=== PATIENT | male | born 1995 | race Two or more races ===

== ENCOUNTER 2024-03-20 07:43 | Outpatient (AMB) | payer OTHER, SELFPAY ==
--- NOTE | 2024-03-20 07:47 | A.OFFPC_ITS ---
Vital Signs 03/20/24 07:49 Height 5 ft 9 in Weight 163 lb BMI 24.1 BP 108/68 Blood Pressure Location Lt brachial Position Sitting Pulse 85 Pulse Source Pulse Oximeter Pulse Oximetry (%) 98 Oxygen Delivery Method Room Air Intake Visit Reasons: Est Care/Requesting PE Intake Note: Pt is here today as a New Patient to est care/ PE Medication List - Last Reconciled 03/20/24 by Natacha Bullock MD omeprazole 40 mg PO DAILY Tobacco use date assessed: 03/20/24 Dental Screening Dental Screen Date: 03/20/24 Did you have a dental visit in the last 12 months?: Yes Did you have a dental problem in the last 6 months where you did not have access to dental care?: No Was dental information given to patient?: Patient has dentist HPI Est Care/Requesting PE HPI Details Pt presents for UTILIZATION MANAGEMENT MANAGER PE. Pt came from [facility] 2 months ago. Pt c/o epigastric discomfort for 6 months worse after eating, no nausea, vomiting change in BMs, melena. PFSH Social History Housing: Apartment Patient Tobacco Use Status: Current everyday Tobacco user Tobacco use type: Cigarette e-Cigarette/Vaping Use: Never Used service: No Current occupational status: unemployed Cognitive needs: No Hearing needs: No Vision needs: Yes Questionnaire Thrive Questionnaire Date Thrive assessed: 03/16/24 I am a: Patient What is your living situation today?: I have a steady place to live Within the past 12 months, did the food you bought not last and you didn't have the money to get more?: Never true Within the past 12 months, did you worry whether your food would run out before you got money to buy more?: Never true Do you have trouble paying for medicines?: No Do you have trouble getting transportation to medical appointments?: No Do you have trouble paying your heating and electricity bill?: No Do you have trouble taking care of your child, family member or friend?: No Do you have trouble with day-to-day activities such as bathing, preparing meals, shopping, managing finances, etc.?: No Are you currently unemployed and looking for a job?: No Are you interested in more education?: No Please select the resources that you would like help with: None Currently or been in a relationship where the following occur: No concerns reported THRIVE Score: 0 AUDIT C Alcohol Use Questionnaire (AUDIT-C) 1. How often do you have a drink containing alcohol?: Monthly or less 2. How many drinks containing alcohol do you have on a typical day when you are drinking?: 1 or 2 3. How often do you have six or more drinks on one occasion?: Never Total Score: 1 CARLY-7 AMB Questionnaire CARLY-7 Feeling nervous, anxious, or on edge: 0 = Not at all Not being able to stop or control worryin = Not at all Worrying too much about different things: 0 = Not at all Trouble relaxin = Not at all Being so restless that it is hard to sit still: 0 = Not at all Becoming easily annoyed or irritable: 0 = Not at all Feeling afraid as if something awful might happen: 0 = Not at all Total CARLY-7 score (0-4 normal; 5-9 mild; 10-14 moderate; 15-21 severe): 0 Source: Developed by Drs. Abel Brumfield, Jazmin Araujo, Kev Munson and colleagues, with an educational josafat from Personal. Review of Systems Const All systems reviewed & are unremarkable except as noted in HPI and below Reports no additional complaints Eyes Reports no additional complaints ENT Reports no additional complaints Card Reports no additional complaints Resp Reports no additional complaints GI Reports no additional complaints Physical exam (Primary Care) Vital Signs: Last Vital Signs Pulse 85 03/20/24 07:49 BP 108/68 03/20/24 07:49 Pulse Ox 98 03/20/24 07:49 Oxygen Delivery Method Room Air 03/20/24 07:49 BMI result Body Mass Index 24.1 Tobacco/Smoking Status: Tobacco use Status Tobacco use date assessed 03/20/24 03/20/24 07:53 Patient Tobacco Use Status Current everyday Tobacco 03/20/24 07:53 Tobacco use type Cigarette 03/20/24 07:53 e-Cigarette/Vaping Use Never Used 03/20/24 07:53 Thrive Assessment: Date of Thrive Assessment Date Thrive assessed 03/16/24 03/20/24 07:53 Currently or been in a relationship where the following occur: No concerns reported Const General: no acute distress HENMT Head: Yes normal to inspection Ears: hearing grossly normal bilaterally General nose exam: Normal external nose present Face and sinus: Yes normal facial exam Mouth: Normal oral and palatal mucosa present Throat: Yes posterior oropharynx normal Neck Neck: Yes no lymphadenopathy and Yes supple Resp Effort & Inspection: normal respiratory effort Auscultation: clear to auscultation bilaterally Cardio Rhythm: regular rhythm Heart sounds: S1 normal heart sound present and S2 normal heart sound present GI Inspection: Yes normal to inspection Palpation (GI): Soft to palpation Percussion: Yes normal to percussion Auscultation: normal bowel sounds Coding Level of Care Code Est Pt Prev Care 18-39y(55112) Diagnoses Annual physical exam Z00.00 Gastritis K29.70 Assessment & Plan Assessment & Plan (1) Annual physical exam: Code(s): Z00.00 - Encounter for general adult medical examination without abnormal findings Category: Medical Plan: well balanced diet, regular exercise, check labs (2) Gastritis: Code(s): K29.70 - Gastritis, unspecified, without bleeding Category: Medical Plan: check labs, stool H pylori, trial of Omeprazole 40 mg for 2 months. If symptoms reoccur refer to GI Orders: Orders Comprehensive Ewing. Panel Fast Today K29.70 - Gastritis, unspecified, without bleeding, Z00.00 - Encounter for general adult medical examination without abnormal findings Complete Blood Count Auto Diff Today K29.70 - Gastritis, unspecified, without bleeding, Z00.00 - Encounter for general adult medical examination without abnormal findings Lipid Panel Today K29.70 - Gastritis, unspecified, without bleeding, Z00.00 - Encounter for general adult medical examination without abnormal findings UA w Microscopic Today K29.70 - Gastritis, unspecified, without bleeding, Z00.00 - Encounter for general adult medical examination without abnormal findings H pylori Ag Stool Today K29.70 - Gastritis, unspecified, without bleeding, Z00.00 - Encounter for general adult medical examination without abnormal findings Medications: New omeprazole 40 mg PO DAILY 60 caps 0RF omeprazole 40 mg PO DAILY 60 caps 0RF
[2024-03-20 07:49] VITALS: BP 108/68; PULSE 85; O2SAT 98; BMI 24.1
== END 2024-03-20 08:22 | disposition home or self-care (01) ==
PROVIDERS: Visit Provider Internal Medicine
DX: Z00.00 Encounter for general adult medical examination without abnormal findings (principal); K29.70 Gastritis, unspecified, without bleeding

== ENCOUNTER → 2024-03-20 07:43 | Outpatient (BNVA) | payer OTHER, SELFPAY | PROVIDERS: Visit Provider Internal Medicine | DX: Z00.00 Encounter for general adult medical examination without abnormal findings (principal); K29.70 Gastritis, unspecified, without bleeding | CPT/HCPCS: 99395 ==

== ENCOUNTER 2024-03-21 08:47 | Outpatient (REF) | payer OTHER, SELFPAY ==
[2024-03-21 10:04] LABS: MANUAL DIFF FLAG NO
[2024-03-21 10:13] LABS: Basophils Absolute Auto 0.1 X10*3/uL (0.0-0.2); Eosinophils Absolute Auto 0.2 X10*3/uL (0.0-0.4); Eosinophils Percent Auto 3.6 % (0-4); Hematocrit 45.2 % (42.0-52.0); Hemoglobin 14.7 g/dl (14.0-18.0); Imm Gran Abs Auto 0.02 X10*3/uL (0.00-0.03); Imm Gran Pct Auto 0.3 % (0.0-0.4); Lymphocytes Absolute Auto 1.8 X10*3/uL (1.2-4.9); Lymphocytes Percent Auto 31.6 % (20-40); Mean Corpuscular HGB Conc 32.5 g/dl (31.0-36.0); Mean Corpuscular Hemoglobin 28.1 pg (27.0-33.0); Mean Corpuscular Volume 86.4 fL (80.0-98.0); Monocytes Absolute Auto 0.6 X10*3/uL (0.1-1.2); Monocytes Percent Auto 10.5 % (2-11); Neutrophils Absolute Auto 3.1 x10*3/uL (2.0-8.3); Platelet Count 197 X10*3/uL (160-400); Red Blood Count 5.23 X10*6/uL (4.60-5.80); Red Cell Distribution Width 13.3 % (11.0-16.0); White Blood Count 5.8 X10*3/uL (4.8-10.8)
[2024-03-21 10:15] LABS: Appearance Urine Clear; Color Urine Yellow; Glucose Urine UA Negative (Negative); Leukocyte Esterase Urine Negative (Negative); Nitrite Urine Negative (Negative); Specific Gravity - Urine 1.025 (1.005-1.025); Urine Blood Negative (Negative); Urine Ketones Negative (Negative); Urine Protein Negative (Neg-Trace)
[2024-03-21 10:23] LABS: Bacteria Urine None Seen (None Seen); Hyaline Casts Urine 0-2 /LPF (0-2); RBC Urine 0-2 /HPF (0-2); Squamous Epithelial Cell Urine 0-2 /HPF (0-2); WBC Urine 0-5 /HPF (0-5)
[2024-03-21 10:43] LABS: Alanine Aminotransferase 30 U/L (0-40); Albumin Level 4.5 g/dL (3.5-5.0); Alkaline Phosphatase 59 U/L (39-117); Anion Gap 7 (12-20); Aspartate Amino Transferase 22 U/L (5-37); Bilirubin Total 0.5 mg/dL (0.0-1.0); Blood Urea Nitrogen 15 mg/dL (9-16); Calcium 8.9 mg/dL (8.4-10.2); Carbon Dioxide 29 mmol/L (22-29); Chloride 105 mmol/L (96-108); Cholesterol 168 mg/dL (<200); Estimated Glomerular Filt Rate > 60; Glucose Fasting 104 mg/dL (60-99); HDL Cholesterol 51 mg/dL (>40); LDL Cholesterol Calculated 98 mg/dL (<100); Potassium 4.1 mmol/L (3.3-5.1); Sodium 137 mmol/L (135-145); Total Protein 6.9 g/dL (6.5-8.0); Triglycerides 99 mg/dL (<150)
== END 2024-03-21 08:48 | disposition home or self-care (01) ==
LOC: HO.HMGCLDS 08:47
PROVIDERS: PCP Internal Medicine; Visit Provider Internal Medicine
DX: Z00.00 Encounter for general adult medical examination without abnormal findings (principal); K29.70 Gastritis, unspecified, without bleeding
CPT/HCPCS: 36415; 80053; 80061; 81001; 85025

== ENCOUNTER 2024-03-22 08:30 | Outpatient (REF) | payer OTHER, SELFPAY | END 2024-03-22 08:31 | disposition home or self-care (01) | LOC: HO.HMGCLNP 08:30 | PROVIDERS: PCP Internal Medicine; Visit Provider Internal Medicine | DX: Z00.00 Encounter for general adult medical examination without abnormal findings (principal); K29.70 Gastritis, unspecified, without bleeding | CPT/HCPCS: 87338 ==

== ENCOUNTER 2024-11-28 13:13 | Outpatient (REF) | payer OTHER, SELFPAY ==
--- NOTE | ~2024-11-28 | XR_ITS ---
EXAMINATION: XR ABDOMEN KUB CLINICAL INDICATION: R10.9 - Unspecified abdominal pain COMPARISON: None available. TECHNIQUE: AP view of the abdomen. FINDINGS: There is a normal bowel gas pattern. No abnormal calcifications are evident. No bony abnormalities are evident. XR/XR abdomen 1V IMPRESSION: Unremarkable examination. Electronically signed by: Leonid Romero MD 11/28/2024 02:24 PM EDT RP
[2024-11-28 16:04] LABS: Hematocrit 40.6 % (42.0-52.0); Hemoglobin 13.7 g/dl (14.0-18.0); Mean Corpuscular HGB Conc 33.7 g/dl (31.0-36.0); Mean Corpuscular Hemoglobin 28.1 pg (27.0-33.0); Mean Corpuscular Volume 83.2 fL (80.0-98.0); NRBC Abs Auto 0.000 X10*3/uL (0.0-0.012); NRBC Pct Auto 0.0 /100WBC (0.0-0.2); Platelet Count 169 X10*3/uL (160-400); Red Blood Count 4.88 X10*6/uL (4.60-5.80); White Blood Count 6.0 X10*3/uL (4.8-10.8)
[2024-11-28 16:14] LABS: Alanine Aminotransferase 19 U/L (0-40); Albumin Level 4.4 g/dL (3.5-5.0); Alkaline Phosphatase 62 U/L (39-117); Anion Gap 11 (12-20); Aspartate Amino Transferase 23 U/L (5-37); Blood Urea Nitrogen 13 mg/dL (9-16); Calcium 8.7 mg/dL (8.4-10.2); Carbon Dioxide 27 mmol/L (22-29); Chloride 106 mmol/L (96-108); Estimated Glomerular Filt Rate > 60; Potassium 3.8 mmol/L (3.3-5.1); Sodium 140 mmol/L (135-145); Total Protein 6.5 g/dL (6.5-8.0)
[2024-11-28 16:34] LABS: Band Neutrophils Percent 14 % (3-5); Eosinophils Absolute Manual 0.1 X10*3/uL (0.0-0.4); Eosinophils Percent Manual 1 % (0-4); Lymphocytes Absolute Manual 1.9 X10*3/uL (1.2-4.9); Lymphocytes Percent Manual 32 % (20-40); Monocytes Absolute Manual 1.1 X10*3/uL (0.1-1.2); Monocytes Percent Manual 19 % (2-11); Neutrophils Absolute Manual 2.9 X10*3/uL (2.0-8.3); Neutrophils Percent Manual 34 % (45-73)
[2024-11-28 16:37] LABS: RBC Morphology NORMAL
== END 2024-11-28 13:14 | disposition home or self-care (01) ==
LOC: HO.HMGCX 13:13
PROVIDERS: PCP Internal Medicine; Visit Provider Internal Medicine
DX: K29.70 Gastritis, unspecified, without bleeding (principal)
CPT/HCPCS: 36415; 74018; 80053; 85007; 85025; 85027; 99212

== ENCOUNTER 2024-11-28 13:13 | Outpatient (AMB) | payer OTHER, SELFPAY ==
--- OUTSIDE RECORDS SUMMARY | 2024-11-28 13:15 | XMS_ITS | Clinical Summary ---
Author Organization [facility] Address [address] [place] [address] Care Team Providers Care Marine Steward Name Role Phone Unavailable Primary Care Provider Unavailabl e Source Comments PLEASE NOTE, if this patient is a minor, it may be UNLAWFUL to discuss sensitive information that is contained in these records (such as FAMILY PLANNING, MENTAL HEALTH or SUBSTANCE ABUSE) with the minor patient's parent or other person without the patient's specific authorization.[facility] Social History Tobacco Use Types Packs/Day Years Used Date Smoking Tobacco: Never Assessed Social Connections Answer Date Recorded Connectedness 0 02/21/2024 Financial Resource Strain Answer Date R ecorded Financial Resource Strain 0 2023 Stress Answer Date Recorded Stress 0 02/21/2024 Physical Activity Answer Date Recorded Physical Activity 0 02/21/2024 Food Insecurity Answer Date Recorded Food 0 02/21/2024 Transportation Needs Answer Date Record ed Transportation 0 02/21/2024 Housing Stability Answer Date Recorded Housing 0 02/21/2024 Safety and Environment Answer Date Conrado rded Safety 0 02/21/2024 Utilities Answer Date Recorded Utilities 0 02/21/2024 Employment Answer Date Recorded Stress 0 02/21/2024 Sex and Gender Information Value Date Recorded Sex Assigned at Not on file Legal Sex Male 8:39 AM PDT Gender Identity Not on file Sexual Orientation Not on file Plan of Treatment Health Maintenance Due Date Last Done Comments Anxiety Screening 1994 Hepatitis C Screening 1994 Tobacco Screening 1994 HIV Screening 2009 Hypertension Screening (#1) 2012 Imm-DTaP/Tdap/Td (1 - Tdap) 2013 Imm-Hepatitis B (1 of 3 - 19+ 3-dose series) 3 [id number] ( season) 2024 Alcohol and Drug Screen 05/07/2024 Depression Annual Screen 05/07/2024 Imm-Influenza (#1) 2025
--- NOTE | 2024-11-28 13:19 | A.OFFPC_ITS ---
Vital Signs 11/28/24 13:20 Height 5 ft 9 in Weight 159 lb BMI 23.5 BP 102/78 Blood Pressure Location Lt brachial Position Sitting Respiration 16 Pulse 78 Pulse Source Pulse Oximeter Temp 98.1 F Temp Source Oral Pulse Oximetry (%) 96 Oxygen Delivery Method Room Air Intake Visit Reasons: Stomach pain Manager Logistic Required: No Accompanied by: Friend Medication List - Last Reconciled 11/28/24 by Natacha Bullock MD famotidine (Pepcid) 40 mg PO DAILY Tobacco use date assessed: 03/20/24 Dental Screening Dental Screen Date: 03/20/24 HPI Stomach pain HPI Details Patient presents complaining of 4 days of epigastric abdominal pain nausea watery diarrhea worse after eating. He denies fever chills hematochezia melena eating undercooked meat or fish recent travel. Patient has been able to keep fluids and rice down. He reports of chronic persistent epigastric abdominal pain since March. Patient completed course of antibiotics for H pylori and his symptoms improved for a few weeks. Patient has been taking omeprazole without relief. [facility] Medical History (Updated 11/28/24 @ 15:02 by Natacha Bullock MD) Gastritis Abdominal pain H. pylori infection Family History Father No problems noted. Mother No problems noted. Social History Housing: Apartment Patient Tobacco Use Status: Current everyday Tobacco user Tobacco use type: Cigarette e-Cigarette/Vaping Use: Never Used service: No Current occupational status: unemployed Cognitive needs: No Hearing needs: No Vision needs: Yes Questionnaire Thrive Questionnaire Date Thrive assessed: 03/16/24 Review of Systems Const All systems reviewed & are unremarkable except as noted in HPI and below Eyes Reports no additional complaints Card Reports no additional complaints Resp Reports no additional complaints GI Reports no additional complaints Reports no additional complaints Physical exam (Primary Care) Vital Signs: Last Vital Signs Temp 98.1 F 11/28/24 13:20 Pulse 78 11/28/24 13:20 Resp 16 11/28/24 13:20 BP 102/78 11/28/24 13:20 Pulse Ox 96 11/28/24 13:20 Oxygen Delivery Method Room Air 11/28/24 13:20 BMI result Body Mass Index 23.5 Tobacco/Smoking Status: Tobacco use Status Tobacco use date assessed 03/20/24 11/28/24 13:25 Patient Tobacco Use Status Current everyday Tobacco 11/28/24 13:25 Tobacco use type Cigarette 11/28/24 13:25 e-Cigarette/Vaping Use Never Used 11/28/24 13:25 Thrive Assessment: Date of Thrive Assessment Date Thrive assessed 03/16/24 11/28/24 13:25 Const General: no acute distress HENMT Head: Yes normal to inspection Face and sinus: Yes normal facial exam Resp Effort & Inspection: normal respiratory effort Auscultation: clear to auscultation bilaterally Cardio Rhythm: regular rhythm Heart sounds: S1 normal heart sound present and S2 normal heart sound present GI Inspection: Yes normal to inspection Palpation (GI): Soft to palpation and Tenderness to palpation present (GI) in the epigastrum Percussion: Yes normal to percussion Auscultation: normal bowel sounds Coding Level of Care Code Est Pt Level 3 (70886) Diagnoses Gastritis K29.70 Assessment & Plan Assessment & Plan (1) Gastritis: Code(s): K29.70 - Gastritis, unspecified, without bleeding Category: Medical Plan: For acute gastroenteritis supportive care discussed with the patient. For persistent epigastric abdominal pain Pepcid 40 mg daily will be tried and H pylori stool antigen test will be repeated. Comprehensive panel and CBC will be checked today Orders: Orders Leukocytes Stool Qualitative Today K29.70 - Gastritis, unspecified, without bleeding H pylori Ag Stool Today K29.70 - Gastritis, unspecified, without bleeding Comprehensive Met. Panel Today K29.70 - Gastritis, unspecified, without bleeding Complete Blood Count Auto Diff Today K29.70 - Gastritis, unspecified, without bleeding Medications: New famotidine (Pepcid) 40 mg PO DAILY 30 tabs 0RF Discontinued omeprazole Take daily for 8 weeks Discontinued Reason: Doctor's Order 40 mg PO DAILY 90 caps 0RF amoxicillin Discontinued Reason: Doctor's Order 1,000 mg (2 x 500 mg) PO BID 48 caps 0RF clarithromycin Discontinued Reason: Doctor's Order 500 mg PO BID 28 tabs 0RF omeprazole Discontinued Reason: Doctor's Order 20 mg PO BID 28 caps 0RF
[2024-11-28 13:20] VITALS: BP 102/78; PULSE 78; RESP 16; TEMP 36.7; O2SAT 96; BMI 23.5
== END 2024-11-28 15:07 | disposition home or self-care (01) ==
LOC: HO.HMCC 13:13
PROVIDERS: PCP Internal Medicine; Visit Provider Internal Medicine
DX: K29.70 Gastritis, unspecified, without bleeding (principal)

== ENCOUNTER → 2024-11-28 14:06 | Outpatient (BNV) | payer OTHER, SELFPAY | PROVIDERS: PCP Internal Medicine; Visit Provider Radiology Diagnostic Radiology | DX: R10.9 Unspecified abdominal pain (principal) | CPT/HCPCS: 74018 ==

== ENCOUNTER 2024-12-03 05:58 | Outpatient (REF) | payer OTHER, SELFPAY ==
--- OUTSIDE RECORDS SUMMARY | 2024-12-03 09:31 | XMS_ITS | Clinical Summary ---
Author Organization [facility] Address [address] [place] [address] Care Team Providers Care Director Of Food And Beverage Services Name Role Phone Unavailable Primary Care Provider [...] of 3 - 19+ 3-dose series) 3 [id number] ( season) 2024 Alcohol and Drug Screen 05/07/2024 Depression Annual Screen 05/07/2024 Imm-Influenza (#1) 2025
[2024-12-03 11:50] LABS: Leukocytes Stool Qualitative NEGATIVE (NEGATIVE)
== END 2024-12-03 05:59 | disposition home or self-care (01) ==
LOC: HO.HMGCLNP 05:58
PROVIDERS: PCP Internal Medicine; Visit Provider Internal Medicine
DX: K29.70 Gastritis, unspecified, without bleeding (principal)
CPT/HCPCS: 87338; 89055